=== PATIENT | male | born 1955 | race Caucasian/White ===

== ENCOUNTER 2017-12-18 18:59 | Emergency (ER) | payer OTHER ==
[~2017-12-18] VITALS: Ht 177.8 cm; Wt 103.3 kg
[2017-12-18] MEDS ORDERED: FLEXERIL10 MG PO (21:35)
[2017-12-18] MEDS ORDERED: PREDNISONE20 MG PO (21:35)
[2017-12-18] MEDS ORDERED: LIDODERM 5% P1 PATCH TD (21:35)
[2017-12-18] MEDS ORDERED: MOTRIN800 MG PO (21:35)
[2017-12-18 22:22] VITALS: BP 131/77
== END 2017-12-18 21:45 | disposition home or self-care (01) ==
LOC: EME 18:59
DX: M62.830 Muscle spasm of back (principal); V49.40XA Driver injured in collision with unspecified motor vehicles in traffic accident, initial encounter; Y92.410 Unspecified street and highway as the place of occurrence of the external cause; Z88.5 Allergy status to narcotic agent
CPT/HCPCS: 99281; 99284; J7512